=== PATIENT | male | born 1990 | race Caucasian/White ===

== ENCOUNTER 2017-09-05 16:57 | Emergency (ER) | payer OTHER ==
[~2017-09-05] VITALS: Ht 175.3 cm; Wt 102.1 kg
[~2017-09-05 16:57] MED LIST: ALBU90OI INH; AMPDEX10; CLIN1TS IV; Cipro500 MG PO; Cleocin HCl300 MG PO; Clindamycin HC300 MG PO; HYDACE5 PO; IBUP600 PO; Vistaril25 MG PO; Zoloft25 MG PO
[2017-09-05] MEDS ORDERED: Cipro500 MG PO (17:36)
== END 2017-09-05 17:43 | disposition home or self-care (01) ==
LOC: ER 16:57
DX: S91.332A Puncture wound without foreign body, left foot, initial encounter (principal); Z23 Encounter for immunization; Z88.0 Allergy status to penicillin; W45.0XXA Nail entering through skin, initial encounter
CPT/HCPCS: 90714; 96372; 99283

== ENCOUNTER 2018-03-27 09:31 | Emergency (ER) | payer OTHER ==
[~2018-03-27] VITALS: Ht 175.3 cm; Wt 104.3 kg
[2018-03-27 10:13] LABS: BASOPHILS ABSOLUTE AUTO 0.02 K/mm3 (0.00-0.23); BASOPHILS PERCENT AUTO 0 % (0-2); EOSINOPHILS ABSOLUTE AUTO 0.17 K/mm3 (0.00-0.68); EOSINOPHILS PERCENT AUTO 2 % (0-6); Hematocrit 47.3 % (37.0-53.0); Hemoglobin 16.4 g/dL (13.5-17.5); IMMATURE GRAN ABSOLUTE AUTO 0.01 K/mm3 (0.00-0.10); IMMATURE GRAN PERCENT AUTO 0 % (0-1); LYMPHOCYTES PERCENT AUTO 27 % (21-46); MONOCYTES ABSOLUTE AUTO 0.39 K/mm3 (0.16-1.47); MONOCYTES PERCENT AUTO 6 % (4-13); Mean Corpuscular HGB 29.7 pg (26.0-34.0); Mean Corpuscular HGB Conc 34.7 g/dL (31.5-36.5); Mean Corpuscular Volume 86 fL (80-100); Mean Platelet Volume 9.3 fL (9.1-12.4); NEUTROPHILS ABSOLUTE AUTO 4.52 K/mm3 (1.96-9.15); NEUTROPHILS PERCENT AUTO 65 % (41-73); Platelet Count 290 K/mm3 (150-400); RDW Standard Deviation 37.6 fL (35.1-46.3); Red Blood Cell Count 5.53 M/mm3 (4.30-5.90); White Blood Cell Count 7.01 K/mm3 (4.00-11.30)
[2018-03-27 10:23] LABS: Alanine Aminotransfer (ALT/SGP 87 U/L (12-78); Albumin, Blood 4.1 g/dL (3.4-5.0); Albumin/Globulin Ratio 1.1 (0.8-1.8); Alk Phos 98 U/L (50-136); Anion Gap 6 mmol/L (6-16); Aspartate Aminotrans (AST/SGOT 45 U/L (12-37); Bilirubin, Total 0.8 mg/dL (0.1-1.0); Blood Urea Nitrogen 16 mg/dL (8-24); Bun/Creatinine Ratio 15.8 (12.0-20.0); CO2, Blood 31 mmol/L (21-32); Chloride, Blood 104 mmol/L (98-108); Creatinine, Blood 1.01 mg/dL (0.60-1.20); Globulin, Blood 3.6 g/dL (2.2-4.0); Glomerular Filtration Rate >60 (60-); Glucose, Blood 98 mg/dL (70-99); Sodium, Blood 141 mmol/L (136-145); Total Protein, Blood 7.7 g/dL (6.4-8.2)
[2018-03-27] MEDS ORDERED: Protonix40 MG PO (12:01)
== END 2018-03-27 12:10 | disposition home or self-care (01) ==
LOC: ER 09:31
PROVIDERS: Emergency Medicine
DX: K29.70 Gastritis, unspecified, without bleeding (principal); Z88.0 Allergy status to penicillin
CPT/HCPCS: 36415; 80053; 83690; 85025; 99283

== ENCOUNTER 2018-08-25 10:11 | Emergency (ER) | payer OTHER ==
[~2018-08-25] VITALS: Ht 172.7 cm; Wt 99.8 kg
[~2018-08-25 10:11] MED LIST changes: +Protonix40 MG PO
[2018-08-25 11:45] LABS: BASOPHILS ABSOLUTE AUTO 0.01 K/mm3 (0.00-0.23); BASOPHILS PERCENT AUTO 0 % (0-2); EOSINOPHILS ABSOLUTE AUTO 0.01 K/mm3 (0.00-0.68); EOSINOPHILS PERCENT AUTO 0 % (0-6); Hematocrit 47.5 % (37.0-53.0); Hemoglobin 16.5 g/dL (13.5-17.5); IMMATURE GRAN ABSOLUTE AUTO 0.02 K/mm3 (0.00-0.10); IMMATURE GRAN PERCENT AUTO 0 % (0-1); LYMPHOCYTES ABSOLUTE AUTO 0.82 K/mm3 (0.84-5.20); LYMPHOCYTES PERCENT AUTO 11 % (21-46); MONOCYTES PERCENT AUTO 7 % (4-13); Mean Corpuscular HGB 29.7 pg (26.0-34.0); Mean Corpuscular HGB Conc 34.7 g/dL (31.5-36.5); Mean Corpuscular Volume 85 fL (80-100); Mean Platelet Volume 9.3 fL (9.1-12.4); NEUTROPHILS ABSOLUTE AUTO 6.16 K/mm3 (1.96-9.15); NEUTROPHILS PERCENT AUTO 82 % (41-73); Platelet Count 196 K/mm3 (150-400); RDW Standard Deviation 37.3 fL (35.1-46.3); Red Blood Cell Count 5.56 M/mm3 (4.30-5.90); White Blood Cell Count 7.52 K/mm3 (4.00-11.30)
[2018-08-25 12:05] LABS: Anion Gap 5 mmol/L (6-16); Blood Urea Nitrogen 18 mg/dL (8-24); Bun/Creatinine Ratio 16.7 (12.0-20.0); CO2, Blood 28 mmol/L (21-32); Calcium, Blood 8.7 mg/dL (8.5-10.1); Chloride, Blood 106 mmol/L (98-108); Creatinine, Blood 1.08 mg/dL (0.60-1.20); Glomerular Filtration Rate >60 (60-); Glucose, Blood 111 mg/dL (70-99); Potassium, Blood 4.1 mmol/L (3.5-5.5); Sodium, Blood 139 mmol/L (136-145)
[2018-08-25] MEDS ORDERED: ONDA4ODT MM (12:39)
[2018-08-25] MEDS ORDERED: Acetaminophen-1 EAC1 PO (12:39)
[2018-08-25] MEDS ORDERED: IBUP800 PO (12:39)
== END 2018-08-25 13:03 | disposition home or self-care (01) ==
LOC: ER 10:11
PROVIDERS: Emergency Medicine
DX: B34.9 Viral infection, unspecified (principal); R11.2 Nausea with vomiting, unspecified; Z88.0 Allergy status to penicillin; Z79.899 Other long term (current) drug therapy
CPT/HCPCS: 36415; 80048; 85025; 96361; 96374; 96375; 99284-25; J1885; J2765; J7030

== ENCOUNTER 2019-03-17 19:24 | Emergency (ER) | payer OTHER ==
[~2019-03-17] VITALS: Ht 175.3 cm; Wt 106.6 kg
[~2019-03-17 19:24] MED LIST changes: +Acetaminophen-1 EAC1 PO; +IBUP800 PO; +ONDA4ODT MM
[2019-03-17] MEDS ORDERED: Percocet 5-3251 EACH PO (20:18)
[2019-03-25] MEDS ORDERED: ALBU90OI INH (14:48)
== END 2019-03-17 20:23 | disposition home or self-care (01) ==
LOC: ER 19:24
DX: S82.832A Other fracture of upper and lower end of left fibula, initial encounter for closed fracture (principal); J45.909 Unspecified asthma, uncomplicated; Z88.1 Allergy status to other antibiotic agents; W19.XXXA Unspecified fall, initial encounter
CPT/HCPCS: 29515; 73610; 99283-25; A9270

== ENCOUNTER 2019-03-26 11:01 | Day surgery (SDC) | payer OTHER ==
[~2019-03-26] VITALS: Ht 172 cm; Wt 115.6 kg
[~2019-03-26 11:01] MED LIST changes: +Percocet 5-3251 EACH PO
--- NOTE | 2019-03-26 11:53 | NUR ---
Patient States Post-Procedure ride home has been arranged with her mom or dad.
--- NOTE | 2019-03-26 11:53 | NUR ---
History, Chart, Medications and Allergies reviewed before start of procedure. Patient confirms NPO status and agrees with scheduled surgery.
--- NOTE | 2019-03-26 12:04 | NUR ---
DR COMER NOTIFIED OF PATIENT'S ELEVATED TEMPERATURE. PATIENT STATES HE FEELS WELL AND DENIES COUGH. Lungs clear T/O to Auscultation.
--- NOTE | 2019-03-26 16:33 | NUR ---
assumed care of brent recieved report vss rates pain at 8/10 down from 9/10. patient sleepy at this time.
--- NOTE | 2019-03-26 17:02 | NUR ---
NANETTE RATES PAIN NOW "BETTER THAN IT WAS". WANTS TO GET DRESSED AND GO HOME AT THIS TIME. MALE FAMILY MEMBER HELPING PATIENT GET DRESSED AT THIS TIME.
--- NOTE | 2019-03-26 17:10 | NUR ---
Discharge instructions reviewed with patient. Patient verbalizes understanding. Copy given to patient to take home-given by EARLENE Peña. Pt able to get dressed with minimal assist from his father. Discharged via wheelchair to private car for ride home.
== END 2019-03-26 17:13 | disposition home or self-care (01) ==
LOC: ORSCMMR 11:01
PROVIDERS: Orthopaedic Surgery
PROC: 0QSK04Z Reposition Left Fibula with Internal Fixation Device, Open Approach (ICD-10-PCS; principal; 2019-03-26 12:30)
DX: S82.62XA Displaced fracture of lateral malleolus of left fibula, initial encounter for closed fracture (principal); E66.01 Morbid (severe) obesity due to excess calories; Z68.39 Body mass index [BMI] 39.0-39.9, adult; V00.131A Fall from skateboard, initial encounter
CPT/HCPCS: 87081; A9270-GY; C1713; J1885; J2250; J2405; J2550; J2704; J2765; J3010; J7120